=== PATIENT | male | born 1980 | race Caucasian/White ===

== ENCOUNTER 2017-01-04 19:14 | Emergency (ER) | payer OTHER ==
[~2017-01-04] VITALS: Ht 180.3 cm; Wt 131.5 kg
--- NOTE | 2017-01-04 20:23 | ED GI/GU/ABDOMINAL COMPLAINT ---
History of Present Illness General Chief Complaint: Abdominal Pain/Flank Pain Stated Complaint: "ABD PAIN X5HOUR" Source: patient Exam Limitations: no limitations Vital Signs & Intake/Output Vital Signs & Intake/Output Vital Signs Date Time Temp Pulse Resp B/P Pulse O2 O2 Flow FiO2 Ox Delivery Rate 01/04 2334 97.3 77 18 130/78 99 Room Air 01/04 2101 Room Air 01/04 1918 97.7 69 18 146/94 100 Room Air ED Intake and Output 01/05 0000 01/04 1200 Intake Total 0 Output Total Balance 0 Intake, Oral 0 Patient 290 lb Weight Allergies Coded Allergies: No Known Allergies (01/04/17) Triage Note: PT STATES HE HAS HAD ABD PAIN FOR THE PAST 5 HOURS. PT STATES SLIGHT NAUSEA NO DIARRHEA. Triage Nurses Notes Reviewed? yes Onset: Abrupt Duration: constant Timing: single episode today Quality/Severity: sharpness, severe, stabbing Radiation: no radiation HPI: Patient is a 36-year-old male with an unremarkable past medical history presents emergency room seen at approximately 7 hours ago he had a gradual onset of generalized abdominal pain with symptoms have significantly worsened currently complains of sharp stabbing severe 10/10 abdominal pain. Mild nausea has occurred no vomiting. Patient did tolerate ibuprofen with no change in his symptoms. Last bowel movement was today no blood no melena noted Denies any significant alcohol use or NSAID use. (ALPESH RECINOS) Past History Travel History Traveled to [place] past 21 day No Medical History Any Pertinent Medical History? none Surgical History Surgical History: non-contributory Psychosocial History What is your primary language Bengali Tobacco Use: Never used ETOH Use: denies use Illicit Drug Use: denies illicit drug use Family History Hx Contributory? No (ALPESH RECINOS) Review of Systems Review of Systems Constitutional: Reports: no symptoms. EENTM: Reports: no symptoms. Respiratory: Reports: no symptoms. Cardiovascular: Reports: no symptoms. GI: Reports: see HPI, abdominal pain. Genitourinary: Reports: no symptoms. Musculoskeletal: Reports: no symptoms. Skin: Reports: no symptoms. Neurological/Psychological: Reports: no symptoms. Hematologic/Endocrine: Reports: no symptoms. Immunologic/Allergic: Reports: no symptoms. All Other Systems: Reviewed and Negative (ALPESH RECINOS) Physical Exam Physical Exam General Appearance: mild distress Gastrointestinal: normal bowel sounds, soft, GENERALIZED POINT TENDERNESS NOTED MILD IN SEVERITY Comments: HEENT: Normal EENT exam,. Neck: Supple, no lymphadenopathy, normal range of motion without pain or tenderness Back: Nontender, no CVA tenderness. Cardiovascular: Regular rate and rhythms no murmurs rubs or gallops, normal JVP Respiratory: Chest nontender. No respiratory distress.breath sounds clear to auscultation bilaterally Extremity: No edema, no calf tenderness to palpation, normal and equal pulses. Neuro: Alert oriented x3, motor sensory normal, Skin: No appreciable rash on exposed skin, skin is warm and dry. Psych: Mood and affect is normal, memory and judgment is normal. Core Measures ACS in differential dx? No Severe Sepsis Present: No Septic Shock Present: No (CRYSTAL POON,ALPESH) Progress Differential Diagnosis: AAA, AMI, appendicitis, biliary colic, bowel obstruction , colon cancer, cholecystitis, diverticulitis, epididymitis, esophageal varices, gastritis, hepatitis, hernia, hemorrhoids, ischemic bowel, inflamm bowel dis, Pretty-Vivienne tear, orchitis, pancreatitis, prostatitis, peptic ulcer, PUD/GERD, perforated viscous, pyelonephritis, SBO, STD, testicular torsion, ureterolithiasis, urinary retention, urethritis, UTI/pyelo Plan of Care: Orders Procedure Date/time Status Add-on Test (ER Only) 01/04 2109 Active LACTIC ACID 01/05 2020 Complete LIPASE 01/04 1959 Complete HEPATIC FUNCTION PANEL 01/04 1959 Complete CBC WITHOUT DIFFERENTIAL 01/04 1959 Complete BASIC METABOLIC PANEL 01/04 1959 Complete AMYLASE 01/04 1959 Complete Laboratory Tests 01/04/17 2020: Anion Gap 14, Estimated GFR > 60, BUN/Creatinine Ratio 17.5, Glucose 103 H, Lactic Acid 1.3, Calcium 9.8, Total Bilirubin 1.2, Direct Bilirubin 0.2, AST 32, ALT 50, Alkaline Phosphatase 83, Total Protein 8.0, Albumin 4.4, Amylase < 30 L , Lipase 91, CBC w Diff NO MAN DIFF REQ, RBC 5.17, MCV 87.7, MCH 29.0, RDW 14.1, MPV 6.7 L, Gran % 85.3 H, Lymphocytes % 8.1 L, Monocytes % 6.0, Eosinophils % 0.4, Basophils % 0.2, Absolute Granulocytes 12.1 H, Absolute Lymphocytes 1.1 L , Absolute Monocytes 0.9 H, Absolute Eosinophils 0.1, Absolute Basophils 0, PUBS MCHC 33.1 Patient initially was offered morphine for his pain however he refused this. Patient also refused Zofran for nausea. Patient states that while waiting in the emergency room without medications here complete resolution of his abdominal pain. Patient did have leukocytosis however is afebrile CT scan was showing concerns of inflammation of the right lower quadrant however state that there is no direct acute appendicitis concerns. I discussed patient with Dr. Paniagua who advised the patient can be safely discharged at this time because he has a nontender abdomen. This was clinically correlated on multiple occasions the patient had nontender abdomen and no peritoneal signs. Patient was able tolerate by mouth I strongly advised patient to return to emergency room if concerns of appendicitis to recur and they will comply. Upon discharge patient looks well no apparent distress and will comply with discharge instructions and had no questions (CRYSTAL POON,ALPESH) Diagnostic Imaging: Viewed by Me: CT Scan. Radiology Impression: SEE COMMENTS Initial ED EKG: none Comments: PATIENT: TRACI LOPEZ PRESENT AGE: 36 PATIENT ACCOUNT NO: [id number] : 80 LOCATION: [facility] ORDERING PHYSICIAN: ALPESH POON SERVICE DATE: 01/04/17 EXAM TYPE: CAT - CT ABD & PELVIS W IV CONTRAST EXAMINATION: CT ABDOMEN AND PELVIS WITH CONTRAST CLINICAL INFORMATION: Severe abdominal pain COMPARISON: None TECHNIQUE: Multidetector volumetric imaging was performed of the abdomen and pelvis before and after the IV administration of 94 mL of Optiray 320 intravenous contrast. Sagittal and coronal reformatted images were obtained on the technologist's workstation. DLP: 1499 mGy-cm FINDINGS: LUNG BASES: The visualized lung bases are unremarkable. LIVER, GALLBLADDER, AND BILIARY TREE: The liver enhances homogeneously. There are peripheral hypoattenuating lesions within segment 7 of the liver. Each lesion measures 1.3 cm. These are of uncertain etiology. The gallbladder is nondistended. There is no varicoceles fluid or wall edema. Multiple gallstones are present within the gallbladder lumen. These are dependent. PANCREAS: Unremarkable. SPLEEN: Unremarkable. ADRENAL GLANDS: Unremarkable. KIDNEYS AND URETERS: The kidneys are normal in size, shape, and attenuation. No hydronephrosis, hydroureter, or calculi seen. No perinephric stranding. BLADDER: Unremarkable. GASTROINTESTINAL TRACT: There are no dilated loops of small large bowel. Limited noncontrast study. There are inflammatory changes within the mesentery and increased number of lymph nodes within the right lower quadrant. The distal ileum appears unremarkable. The appendix is not discretely identified. ABDOMINAL WALL: There is a tiny fat-containing periumbilical hernia. The hernia measures 1.1 CM in transverse diameter and 0.7 cm in the craniocaudal plane. LYMPH NODES: Normal. VASCULAR: Unremarkable. PELVIC VISCERA: The prostate and seminal vesicles are unremarkable. OSSEOUS STRUCTURES: Unremarkable. IMPRESSION: 1. Mild inflammatory changes within the right lower quadrant. No direct evidence for acute appendicitis although this is difficult to exclude. Clinical correlation recommended. 2. Cholelithiasis without CT evidence for acute cholecystitis. 3. Small subcapsular hypodense lesions within the right lobe of the liver, etiology unknown. Consider nonemergent ultrasound for further characterization. DICTATED BY: ROBERTO CARLOS BETTS MD DATE/TIME DICTATED:01/04/172218 SOIL TESTER:NATHANIEL (ALPESH RECINOS) Departure Departure Disposition: HOME OR SELF CARE Condition: Stable Clinical Impression Primary Impression: Abdominal pain Referrals: CRYSTAL DAMICO MD (PCP/Family) Additional Instructions: As discussed if symptoms worsen return to emergency room. Begin a 24-hour clear liquid and bland diet to rest YOUR bowels. If no better in 2 days follow-up with primary care doctor. Departure Forms: Customer Survey General Discharge Information (ALPESH RECINOS) PA/CENTRALIZED TRAFFIC CONTROL OPERATOR Co-Sign Statement Statement: ED Attending supervision documentation- [] I saw and evaluated the patient. I have also reviewed all the pertinent lab results and diagnostic results. I agree with the findings and the plan of care as documented in the PA's/CENTRALIZED TRAFFIC CONTROL OPERATOR's documentation. [x] I have reviewed the ED Record and agree with the PA's/CENTRALIZED TRAFFIC CONTROL OPERATOR's documentation. [] Additions or exceptions (if any) to the PAs/CENTRALIZED TRAFFIC CONTROL OPERATOR's note and plan are summarized below: [] (ARELIS MEJIAS,ROGER Webb)
[2017-01-04 20:27] LABS: ABSOLUTE BASOPHIL COUNT 0 /CUMM (0.0-0.2); ABSOLUTE EOSINOPHIL COUNT 0.1 /CUMM (0.0-0.7); ABSOLUTE GRANULOCYTE CT 12.1 /CUMM (1.4-6.5); ABSOLUTE LYMPH COUNT 1.1 /CUMM (1.2-3.4); ABSOLUTE MONOCYTE COUNT 0.9 /CUMM (0.10-0.60); BASOPHIL % 0.2 % (0.0-2.0); EOSINOPHIL % 0.4 % (0-5); GRANULOCYTE % 85.3 % (42.2-75.2); HEMATOCRIT 45.4 % (42-52); MEAN CORPUSCULAR HGB CONC 33.1 G/DL (33.0-37.0); MEAN CORPUSCULAR VOLUME 87.7 FL (80.0-94.0); MEAN PLATELET VOLUME 6.7 FL (7.4-10.4); PLATELET COUNT 276 /CUMM (130-400); RBC DISTRIBUTION WIDTH 14.1 % (11.5-14.5); RED BLOOD CELL CT 5.17 /CUMM (4.70-6.10)
[2017-01-04 21:17] LABS: WHITE BLOOD CELL COUNT 14.2 /CUMM (4.8-10.8)
--- NOTE | 2017-01-04 22:33 | CT SCAN REPORT ---
EXAMINATION: CT ABDOMEN AND PELVIS WITH CONTRAST CLINICAL INFORMATION: Severe abdominal pain COMPARISON: None TECHNIQUE: Multidetector volumetric imaging was performed of the abdomen and pelvis before and after the IV administration of 94 mL of Optiray 320 intravenous contrast. Sagittal and coronal reformatted images were obtained on the technologist's workstation. DLP: 1499 mGy-cm FINDINGS: LUNG BASES: The visualized lung bases are unremarkable. LIVER, GALLBLADDER, AND BILIARY TREE: The liver enhances homogeneously. There are peripheral hypoattenuating lesions within segment 7 of the liver. Each lesion measures 1.3 cm. These are of uncertain etiology. The gallbladder is nondistended. There is no varicoceles fluid or wall edema. Multiple gallstones are present within the gallbladder lumen. These are dependent. PANCREAS: Unremarkable. SPLEEN: Unremarkable. ADRENAL GLANDS: Unremarkable. KIDNEYS AND URETERS: The kidneys are normal in size, shape, and attenuation. No hydronephrosis, hydroureter, or calculi seen. No perinephric stranding. BLADDER: Unremarkable. GASTROINTESTINAL TRACT: There are no dilated loops of small large bowel. Limited noncontrast study. There are inflammatory changes within the mesentery and increased number of lymph nodes within the right lower quadrant. The distal ileum appears unremarkable. The appendix is not discretely identified. ABDOMINAL WALL: There is a tiny fat-containing periumbilical hernia. The hernia measures 1.1 CM in transverse diameter and 0.7 cm in the craniocaudal plane. LYMPH NODES: Normal. VASCULAR: Unremarkable. PELVIC VISCERA: The prostate and seminal vesicles are unremarkable. OSSEOUS STRUCTURES: Unremarkable. IMPRESSION: 1. Mild inflammatory changes within the right lower quadrant. No direct evidence for acute appendicitis although this is difficult to exclude. Clinical correlation recommended. 2. Cholelithiasis without CT evidence for acute cholecystitis. 3. Small subcapsular hypodense lesions within the right lobe of the liver, etiology unknown. Consider nonemergent ultrasound for further characterization.
[2017-01-04 23:34] VITALS: BP 130/78
== END 2017-01-04 23:35 ==
LOC: ERH 19:14
PROVIDERS: Pediatrics
DX: R10.84 Generalized abdominal pain (principal)
CPT/HCPCS: 74177